=== PATIENT | female | born 1960 | race Caucasian/White ===

== ENCOUNTER 2018-02-27 10:58 | Emergency (ER) | payer MEDICAID, OTHER ==
[2018-02-27 11:36] VITALS: RESP 18
[2018-02-27] MEDS ORDERED: Amoxicillin-Clav 875-125 mg Tab PO STA (11:43)
--- NOTE | 2018-02-27 12:15 | C.PDOC ---
History Of Present Illness 57 y/o female presents to the ER for evaluation of flu-like symptoms associated with nasal congestion and sore throat which has been present for the past 3-4 days. Pt states that she was "unable to breathe and felt some chest tightness due to some nasal congestion in the morning." Pt denies having fever, chills, cough, CP, SOB, dyspnea nausea, vomiting, and abdominal pain. Time Seen by Provider: 02/27/18 11:42 Chief Complaint (Nursing): Cough, Cold, Congestion History Per: Patient History/Exam Limitations: no limitations Onset/Duration Of Symptoms: Days Current Symptoms Are (Timing): Still Present Severity: Moderate Past Medical History Reviewed: Historical Data, Nursing Documentation, Vital Signs Vital Signs: Last Vital Signs Temp 98.6 F 02/27/18 11:33 Pulse 127 H 02/27/18 11:33 Resp 18 02/27/18 11:33 BP 112/77 02/27/18 11:33 Pulse Ox 99 02/27/18 11:33 - Medical History PMH: No Chronic Diseases Surgical History: No Surg Hx Family History: States: No Known Family Hx - Social History Hx Tobacco Use: No Hx Alcohol Use: No Hx Substance Use: No - Immunization History Hx Tetanus Toxoid Vaccination: No Hx Influenza Vaccination: No Hx Pneumococcal Vaccination: No Review Of Systems Except As Marked, All Systems Reviewed And Found Negative. Constitutional: Negative for: Fever, Chills ENT: Positive for: Nose Congestion, Throat Pain Cardiovascular: Negative for: Chest Pain Respiratory: Negative for: Cough, Shortness of Breath Gastrointestinal: Negative for: Nausea, Vomiting Physical Exam - Physical Exam Appears: Non-toxic, No Acute Distress Skin: Normal Color, Warm, Dry Head: Atraumatic, Normacephalic Eye(s): bilateral: Normal Inspection Ear(s): Bilateral: Normal Nose: Tenderness (tenderness over paranasal sinuses), Other (nasal congestion bilaterally) Oral Mucosa: Moist Throat: Normal, No Erythema Neck: Supple Chest: Symmetrical Cardiovascular: Rhythm Regular Respiratory: Normal Breath Sounds, No Rales, No Rhonchi, No Wheezing Neurological/Psych: Oriented x3, Normal Speech ED Course And Treatment O2 Sat by Pulse Oximetry: 99 (RA) Pulse Ox Interpretation: Normal - Radiology CXR: Interpreted by Me, Viewed By Me CXR Interpretation: Yes: No Acute Disease Progress Note: Patient treated with Augmentin PO, Tramadol PO, and Prednisone PO. Pt was OBS in ED for 1.5hrs and repotrs mod improvement in sx. On re-eval, pt is afebrile, hemodynamicaly stable. Non-toxic. Tolerate PO well in ED. PulsEOx 98% RA. Neck: Supple, (-) meningeal sign. ENT: (+) pharyngitis. uvual midline, no edema. Lungs: CTA B/L, BS equal B/L. CVS: (+)S1S2, reg. Abd: benign. Neuorlogicaly intact. CXR- normal study. Pt has clinical findings c/w pharyngitis, sinusitis. Pt advised and ref. to f/u with PMD in 2-3 days for re- eval. return to ED if any worsening or new changes. Pt understand and agrees with plan. Disposition Counseled Patient/Family Regarding: Studies Performed, Diagnosis, Need For Followup, Rx Given - Disposition Referrals: [facility] [Outside] Disposition: HOME/ ROUTINE Disposition Time: 12:36 Condition: STABLE Additional Instructions: Encourage fluids take medication as prescribed Follow up with PMD in 2-3 days for re-evaluation. Return to ED if any worsening or new changes. 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 - Scribe Statement The provider has reviewed the documentation as recorded by the Yadiel Maldonado Provider Attestation All medical record entries made by the Yadiel were at my direction and personally dictated by me. I have reviewed the chart and agree that the record accurately reflects my personal performance of the history, physical exam, medical decision making, and the department course for this patient. I have also personally directed, reviewed, and agree with the discharge instructions and disposition.
[2018-02-27] MEDS ORDERED: Amoxicillin-Clav 875-125 mg Tab PO ONE (12:17)
--- NOTE | 2018-02-27 12:39 | RAD ---
HISTORY: Cough COMPARISON: No prior. TECHNIQUE: Chest PA and lateral FINDINGS: LUNGS: No focal consolidation. Please note that chest x-ray has limited sensitivity for the detection of pulmonary masses. PLEURA: No significant pleural effusion identified. No definite pneumothorax . CARDIOVASCULAR: Heart size appears within normal limits. No atherosclerotic calcification present. OSSEOUS STRUCTURES: Mild degenerative changes. VISUALIZED UPPER ABDOMEN: Unremarkable. OTHER FINDINGS: None. IMPRESSION: No focal consolidation identified.
[2018-02-27 13:35] VITALS: BP 104/69; PULSE 102; TEMP 98.5; O2SAT 98
== END 2018-02-27 13:25 | disposition home or self-care (01) ==
LOC: C.ER 10:58
DX: J32.9 Chronic sinusitis, unspecified (principal)